=== PATIENT | male | born 1945 | race Caucasian/White ===

== ENCOUNTER 2017-06-17 16:59 | Emergency (ER) | payer OTHER ==
[~2017-06-17] VITALS: Ht 172.7 cm; Wt 118.4 kg
[2017-06-17 17:10] VITALS: BP 143/83
[2017-06-17] MEDS ORDERED: SODIUM CHLORIDE FLUSH 10ML SYR IVF ONE (18:00)
[2017-06-17 18:03] LABS: HEMATOCRIT 44.2 % (39.2-51.8); HEMOGLOBIN 15.1 g/dL (13.7-18.0); WHITE BLOOD COUNT 9.7 x10^3/uL (3.4-10)
[2017-06-17 18:15] LABS: ASPARTATE AMINO TRANSFERASE 36 U/L (15-37); BLOOD UREA NITROGEN 40 mg/dL (7-18)
== END 2017-06-17 20:43 | disposition left against medical advice (07) ==
LOC: ED 19:30
DX: S30.1XXA Contusion of abdominal wall, initial encounter (principal); N28.9 Disorder of kidney and ureter, unspecified; I10 Essential (primary) hypertension; E11.9 Type 2 diabetes mellitus without complications; W19.XXXA Unspecified fall, initial encounter; Y93.89 Activity, other specified; Y92.009 Unspecified place in unspecified non-institutional (private) residence as the place of occurrence of the external cause; Y99.9 Unspecified external cause status
CPT/HCPCS: 36415; 72190; 74022; 80053; 81003; 83690; 85025; 85610; 99285

== ENCOUNTER 2020-04-06 08:00 | Outpatient (CLI) | payer MEDICARE, OTHER ==
[2020-04-23] MEDS ORDERED: GABA100C PO (15:39)
[2020-04-23] MEDS ORDERED: CETI10CA PO (15:39)
[2020-04-23] MEDS ORDERED: ASPI-496 PO (15:39)
[2020-04-23] MEDS ORDERED: LOSA100T14 PO (15:39)
[2020-04-23] MEDS ORDERED: ATOR40TA78 PO (15:39)
[2020-04-23] MEDS ORDERED: CLOP75TA52 PO (15:39)
[2020-04-23] MEDS ORDERED: SERT100T PO (15:39)
== END 2020-04-06 23:59 | disposition home or self-care (01) ==
LOC: CFH 08:00
PROVIDERS: ATTEND Orthopaedic Surgery Foot and Ankle Surgery
DX: M79.662 Pain in left lower leg (principal)

== ENCOUNTER → 2020-04-23 | Outpatient (CLI) | payer MEDICARE ==
[~2020-04-23] MED LIST: ASPI-496 PO; ATOR40TA78 PO; CETI10CA PO; CLOP75TA52 PO; GABA100C PO; LOSA100T14 PO; SERT100T PO
[2020-04-23 16:25] LABS: ALANINE AMINOTRANSFERASE 34 U/L (12-78); ALBUMIN 3.5 g/dL (3.4-5.0); ANION GAP 3 mmol/L (5-15); CALCIUM 8.6 mg/dL (8.5-10.1); CHLORIDE 106 mmol/L (98-107); CREATININE 1.69 mg/dL (0.7-1.3)
[2020-04-23 16:27] LABS: ALKALINE PHOSPHATASE 83 U/L (45-117); BILIRUBIN,TOTAL 0.5 mg/dL (0.2-1.0); TOTAL PROTEIN 6.9 g/dL (6.4-8.2)
== END | disposition home or self-care (01) ==
LOC: STAR 14:44
PROVIDERS: ATTEND Orthopaedic Surgery Foot and Ankle Surgery
DX: Z01.818 Encounter for other preprocedural examination (principal); M20.42 Other hammer toe(s) (acquired), left foot; M79.672 Pain in left foot; R00.8 Other abnormalities of heart beat; I45.10 Unspecified right bundle-branch block
CPT/HCPCS: 36415; 80053; 93005

== ENCOUNTER 2020-04-30 10:03 | Day surgery (SDC) | payer MEDICARE ==
[~2020-04-30] VITALS: Ht 172.7 cm; Wt 118.2 kg
[2020-04-30] MEDS ORDERED: LACTATED RINGERS 1,000 ML IV SCH (10:22)
[2020-04-30 10:24] VITALS: BP 160/86
[2020-04-30] MEDS ORDERED: CHLORHEXIDINE 15 ML UDC MM ONE (10:30)
[2020-04-30] MEDS ORDERED: LIDOCAINE 1%, 20ML ONE (12:22)
[2020-04-30] MEDS ORDERED: BUPIVACAINE/PF 0.5% ONE (12:22)
[2020-04-30] MEDS ORDERED: INSU100V11 SQ (12:37)
[2020-04-30] MEDS ORDERED: INSU100V13 SQ (12:37)
[2020-04-30] MEDS ORDERED: FENTANYL PF 100 MCG/2ML ONE (12:43)
[2020-04-30] MEDS ORDERED: OXYcodone 5 MG/5 ML ORAL.SOL UDC PO PRN (13:30)
[2020-04-30] MEDS ORDERED: hydrALAzine 20 MG/ML, 1ML IV PRN (13:30)
[2020-04-30] MEDS ORDERED: PROMETHAZINE 25 MG/ML, 1ML IV PRN (13:30)
[2020-04-30] MEDS ORDERED: LABETALOL 5MG/ML, 20ML IV PRN (13:30)
[2020-04-30] MEDS ORDERED: DIAZEPAM 5 MG/ML, 2ML IVPush PRN (13:30)
[2020-04-30] MEDS ORDERED: ALBUTEROL SULFATE 2.5 MG/3 ML NPPB PRN (13:30)
[2020-04-30] MEDS ORDERED: HYDROmorphone 2 MG/ML, 1ML IVPush PRN (13:30)
[2020-04-30] MEDS ORDERED: MEPERIDINE/PF 25MG/0.5ML IVPush PRN (13:30)
[2020-04-30] MEDS ORDERED: ACETAMINOPHEN 325 MG TABLET PO PRN (13:30)
[2020-04-30] MEDS ORDERED: FENTANYL PF 100 MCG/2ML IV PRN (13:30)
[2020-04-30] MEDS ORDERED: ONDANSETRON 2MG/ML, 2ML ONE (14:31)
[2020-04-30] MEDS ORDERED: GLYCOPYRROLATE 0.2MG/1ML, 5ML ONE (14:31)
[2020-04-30] MEDS ORDERED: CEFAZOLIN 1,000 MG ONE (14:31)
[2020-04-30] MEDS ORDERED: PROPOFOL 10 MG/ML, 20ML ONE (14:31)
[2020-04-30] MEDS ORDERED: ROCURONIUM 10MG/ML,5ML ONE (14:31)
[2020-04-30] MEDS ORDERED: NEOSTIGMINE 1 MG/ML, 10ML ONE (14:31)
[2020-04-30] MEDS ORDERED: DEXAMETHASONE 4 MG/ML, 1ML ONE (14:31)
[2020-04-30] MEDS ORDERED: SUCCINYLCHOLINE 20 MG/ML, 10ML ONE (14:31)
== END 2020-04-30 18:30 | disposition home or self-care (01) ==
LOC: OUT 10:03
PROVIDERS: ATTEND Orthopaedic Surgery Foot and Ankle Surgery
DX: T84.84XA Pain due to internal orthopedic prosthetic devices, implants and grafts, initial encounter (principal); Z20.828 Contact with and (suspected) exposure to other viral communicable diseases; M77.42 Metatarsalgia, left foot; M20.42 Other hammer toe(s) (acquired), left foot; M24.575 Contracture, left foot; E11.22 Type 2 diabetes mellitus with diabetic chronic kidney disease; I12.9 Hypertensive chronic kidney disease with stage 1 through stage 4 chronic kidney disease, or unspecified chronic kidney disease; N18.9 Chronic kidney disease, unspecified; G47.30 Sleep apnea, unspecified; E66.9 Obesity, unspecified; Z79.02 Long term (current) use of antithrombotics/antiplatelets; Z79.82 Long term (current) use of aspirin; Z79.4 Long term (current) use of insulin; Z79.899 Other long term (current) drug therapy; Z88.2 Allergy status to sulfonamides; Z88.8 Allergy status to other drugs, medicaments and biological substances; Z98.890 Other specified postprocedural states; Z82.61 Family history of arthritis; Z82.49 Family history of ischemic heart disease and other diseases of the circulatory system; Y83.8 Other surgical procedures as the cause of abnormal reaction of the patient, or of later complication, without mention of misadventure at the time of the procedure
CPT/HCPCS: 20680; 27685; 28114; 28285; 36415; 73630; 76000; 82962; 87635; C1713; C5271; J0330; J0690; J2405; J2704; J3010; J7120; Q4100; J1100; J2710

== ENCOUNTER → 2020-05-05 | Outpatient (CLI) | payer MEDICARE ==
[~2020-05-05] MED LIST changes: +INSU100V11 SQ; +INSU100V13 SQ
== END | disposition home or self-care (01) ==
LOC: RAD 08:00
PROVIDERS: ATTEND Orthopaedic Surgery Foot and Ankle Surgery
DX: M79.662 Pain in left lower leg (principal)

== ENCOUNTER 2020-08-27 08:31 | Day surgery (SDC) | payer MEDICARE ==
[~2020-08-27] VITALS: Ht 172.7 cm; Wt 114.0 kg
[~2020-08-27 08:31] MED LIST changes: +EPHEDRINE 50 MG/ML, 1ML IVPush PRN; +FENTANYL PF 100 MCG/2ML IV PRN; +HYDROmorphone 1 MG/ML, 1ML INJ IVPush PRN; +LABETALOL 5MG/ML, 20ML IV PRN; +ONDANSETRON 2MG/ML, 2ML IVPush PRN; +OXYcodone 5 MG/5 ML ORAL.SOL UDC PO PRN; +PROMETHAZINE 25 MG/ML, 1ML IVPush PRN; +hydrALAzine 20 MG/ML, 1ML IV PRN
[2020-08-27] MEDS ORDERED: CHLORHEXIDINE 15 ML UDC MM STA (08:57)
[2020-08-27 08:59] VITALS: BP 180/72
[2020-08-27] MEDS ORDERED: LACTATED RINGERS 1,000 ML IV SCH (09:00)
[2020-08-27] MEDS ORDERED: ERGO500017 PO (09:10)
[2020-08-27] MEDS ORDERED: CEFD300C37 PO (09:10)
[2020-08-27] MEDS ORDERED: ACETAMINOPHEN 500 MG TABLET PO ONE (09:30)
[2020-08-27] MEDS ORDERED: FENTANYL PF 250 MCG/5ML ONE (09:56)
[2020-08-27 10:03] LABS: ALBUMIN 3.6 g/dL (3.4-5.0); ANION GAP 6 mmol/L (5-15); CALCIUM 8.9 mg/dL (8.5-10.1); CHLORIDE 111 mmol/L (98-107)
[2020-08-27 10:07] LABS: ALANINE AMINOTRANSFERASE 40 U/L (12-78); ALKALINE PHOSPHATASE 101 U/L (45-117); BILIRUBIN,TOTAL 0.4 mg/dL (0.2-1.0); CREATININE 1.44 mg/dL (0.7-1.3); TOTAL PROTEIN 7.2 g/dL (6.4-8.2)
[2020-08-27] MEDS ORDERED: TRANEXAMIC ACID 100 MG/ML, 10ML ONE (10:13)
[2020-08-27] MEDS ORDERED: KETOROLAC 30 MG/1 ML ONE (10:31)
[2020-08-27] MEDS ORDERED: DEXAMETHASONE 4 MG/ML, 5ML ONE (10:39)
[2020-08-27] MEDS ORDERED: CEFAZOLIN 1,000 MG ONE ×2 (10:39)
[2020-08-27] MEDS ORDERED: LIDOCAINE-MPF 2% ,5ML ONE (10:39)
[2020-08-27] MEDS ORDERED: ONDANSETRON 2MG/ML, 2ML ONE ×2 (10:40)
[2020-08-27] MEDS ORDERED: PROPOFOL 10 MG/ML, 20ML ONE (10:40)
[2020-08-27] MEDS ORDERED: SODIUM CHLORIDE 0.9% PF 10ML ONE (10:42)
[2020-08-27] MEDS ORDERED: LIDOCAINE/PF 1%, 30ML INFIL ONE (10:51)
[2020-08-27] MEDS ORDERED: OXYcodone 5 MG/5 ML ORAL.SOL UDC ONE (11:36)
== END 2020-08-27 14:00 | disposition home or self-care (01) ==
LOC: OUT 08:31
PROVIDERS: ATTEND Orthopaedic Surgery Foot and Ankle Surgery
DX: M20.11 Hallux valgus (acquired), right foot (principal); M20.41 Other hammer toe(s) (acquired), right foot; I10 Essential (primary) hypertension; E11.9 Type 2 diabetes mellitus without complications; M19.90 Unspecified osteoarthritis, unspecified site; G47.30 Sleep apnea, unspecified; Z88.8 Allergy status to other drugs, medicaments and biological substances; Z88.1 Allergy status to other antibiotic agents; Z88.2 Allergy status to sulfonamides; Z79.82 Long term (current) use of aspirin; Z79.899 Other long term (current) drug therapy; Z79.2 Long term (current) use of antibiotics; Z98.890 Other specified postprocedural states; Z72.89 Other problems related to lifestyle; Z79.4 Long term (current) use of insulin; Z82.49 Family history of ischemic heart disease and other diseases of the circulatory system; Z20.828 Contact with and (suspected) exposure to other viral communicable diseases
CPT/HCPCS: 28010; 28270; 28285; 28755; 73630; 80053; 82962; 93005; C1713; J0690; J1100; J1885; J2405; J2704; J3010; J7120; U0003; 76000